=== PATIENT | female | born 2000 | race Caucasian/White ===

== ENCOUNTER 2024-10-24 17:52 | Emergency (ER) | payer BC ==
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
[2024-10-24 18:11] VITALS: TEMP 98.4
[2024-10-24 19:29] VITALS: RESP 18; O2SAT 100
[2024-10-24 20:02] VITALS: BP 101/80; PULSE 58
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
== END 2024-10-24 20:20 | disposition home or self-care (01) ==
LOC: ED 17:52
DX: S52.92XA Unspecified fracture of left forearm, initial encounter for closed fracture (principal); S00.03XA Contusion of scalp, initial encounter; V44.5XXA Car driver injured in collision with heavy transport vehicle or bus in traffic accident, initial encounter; R51.9 Headache, unspecified; M54.2 Cervicalgia; R07.81 Pleurodynia; Z79.899 Other long term (current) drug therapy